=== PATIENT | female | born 1985 | race Hispanic/Latino ===

== ENCOUNTER 2025-08-08 14:30 | Emergency (ER) | payer MEDICAID, SELFPAY ==
--- NOTE | ~2025-08-08 | US_ITS ---
EXAMINATION: US OB transvaginal, 08/08/2025 15:10 CDT HISTORY: r/o ectopic; +preg test from OSH Comparison: None Technique: Graff-scale and color Doppler images were obtained. Findings: Uterus anteverted 11.6 x 7.1 x 7.6 cm. Intrauterine gestational sac is identified with pole and yolk sac, crown-rump length of 2.4 cm corresponding to 9 weeks and 1 day, heart rate 161 Right ovary 2.2 x 1.6 x 1.6 cm, left ovary 2.1 x 1.8 x 1.9 cm, no adnexal mass, normal flow. Minimal free fluid. IMPRESSION: Single live intrauterine . Reviewed, dictated and finalized at location P. IMPRESSION: Single live intrauterine .
[2025-08-08 14:45] VITALS: BP 113/73; PULSE 77; RESP 18; TEMP 36.6; O2SAT 99
--- NOTE | 2025-08-08 14:45 | ED_ITS ---
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 Labs already obtained at outside hospital, including beta quant, blood type, She is O-positive. She has been having left lower abdominal pain on and off now for the last 2 weeks. No vaginal bleeding. Related Data Allergies Allergy/AdvReac Type Severity Reaction Status Date / Time No Known Allergies Allergy Verified 08/08/25 14:49 Review of Systems Review of Systems: All systems reviewed & are unremarkable except as noted in HPI and below Exam Narrative: EXAMINATION OF ORGAN SYSTEMS/BODY AREAS: Constitutional: Vital signs per nursing GENERAL:[No acute distress, non-toxic appearing.] HEAD: Normal with no signs of head trauma. EYES: EOMI, conjunctiva normal ENT: Hearing grossly intact LUNGS: Nonlabored breathing. HEART: [Regular rate and rhythm] ABD: [Soft], slightly tender to palpation left lower abdomen EXT: Normal range of motion SKIN: [No rashes or lesions.] NEURO: [Alert and oriented x 3. No gross focal sensory or strength deficits.] PSYCH: Normal affect Course Vital Signs Vital signs: Vital Signs Temperature 97.8 F 08/08/25 14:45 Pulse Rate 77 08/08/25 14:45 Respiratory Rate 18 08/08/25 14:45 Blood Pressure 113/73 08/08/25 14:45 Pulse Oximetry 99 08/08/25 14:45 Oxygen Delivery Room Air 08/08/25 14:45 Temperature 97.8 F 08/08/25 14:45 Pulse Rate 77 08/08/25 14:45 Respiratory Rate 18 08/08/25 14:45 Blood Pressure 113/73 08/08/25 14:45 Pulse Oximetry 99 08/08/25 14:45 Oxygen Delivery Room Air 08/08/25 14:45 MDM - OB/Uterine Contractions MDM Narrative Medical decision making narrative: Patient presenting here with left lower quadrant pain, her for the last 2 weeks, on and off. She is , no confirmed intrauterine yet. Seen at outside hospital normal labs and blood type is O positive. Ultrasound obtained here, shows intrauterine , gestational age estimated at 9 weeks, heart rate 161. Discussed this with patient, review that Tylenol might be the safest pain medicine to take during , and she needs to follow up with her OBGYN. No signs of UTI on urine. Return precautions discussed, patient and family agreeable to plan Lab Data Labs: Lab Results 08/08/25 Range/Units 14:56 Urine Color Yellow (Yellow) Urine Appearance Clear (Clear) Urine pH 5.5 (5.0-9.0) Ur Specific [place] 1.031 (1.001-1.035) Urine Protein Trace (Negative) mg/dL Urine Glucose (UA) Negative (Negative) mg/dL Urine Ketones 3+ H (Negative) mg/dL Ur Blood (Man) Negative (Negative) Urine Nitrate Negative (Negative) Urine Bilirubin Negative (Negative) Urine Urobilinogen 1.0 (<2.0) mg/dL Leukocyte Esterase Rfl Negative (Negative) SHAHNAZ/UL Urine RBC 0-2 (0-2) /hpf Urine WBC 0-5 (0-3) /hpf Ur Squamous Epith Cells Few (Few) /hpf Urine Bacteria Rare /hpf Urine Casts 0-2 Discharge Plan Discharge Clinical Impression: Abdominal pain during Patient Disposition: Home Condition: Stable Instructions: Abdominal Pain in (ED) Additional Instructions: Please follow-up with your OBGYN, you can take Tylenol for pain as needed, and come back to the emergency room if you feel worse. Patient Language: Syriac Follow-up/Referrals: PHYSICIAN NOT ON STAFF,NONSTAFF [Non-Staff]
[2025-08-08] MEDS: ACETAMINOPHEN 325 MG TABLET 650 MG PO (14:54)
[2025-08-08 15:10] LABS: Add Urine Microscopic? YES; Appearance Urine Clear (Clear); Glucose Urine UA Negative (Negative); Leukocyte Esterase Ur Negative LEU/UL (Negative); Nitrate Urine Negative (Negative); Non Pathogenic Casts 0-2; Specific Grav Ur 1.031 (1.001-1.035)
== END 2025-08-08 16:00 | disposition home or self-care (01) ==
LOC: ANHED 15:48
PROVIDERS: Emergency Provider Emergency Medicine; PCP Physician Assistant Medical
DX: O26.891 Other specified pregnancy related conditions, first trimester (principal); R10.32 Left lower quadrant pain; Z3A.09 9 weeks gestation of pregnancy
CPT/HCPCS: 76817; 81001; 99284; A9270